=== PATIENT | male | born 1985 | race Caucasian/White ===

== ENCOUNTER → 2020-03-28 | Outpatient (CLI) | payer OTHER ==
--- NOTE | 2020-03-28 19:14 | REPVR ---
PROCEDURE INFORMATION: Exam: CT Maxillofacial Without Contrast, Sinus Exam date and time: 03/28/2020 6:18 PM Age: 34 years old Clinical indication: Sinusitis; Chronic; Additional info: Chronic maradiaga sinusitis TECHNIQUE: Imaging protocol: CT Maxillofacial without contrast. Focus on the sinuses. Radiation optimization: All CT scans at this facility use at least one of these dose optimization techniques: automated exposure control; mA and/or kV adjustment per patient size (includes targeted exams where dose is matched to clinical indication); or iterative reconstruction. COMPARISON: No relevant prior studies available. FINDINGS: Frontal sinuses: Normal. No air-fluid levels. Ethmoid air cells: Normal. No air-fluid levels. Sphenoid sinuses: Normal. No air-fluid levels. Maxillary sinuses: There are mucous retention cysts or polyps in the maxillary sinuses, larger on the left. No air-fluid levels. No mucosal thickening. Nasal cavity/Septum: Ostiomeatal complexes appear patent. There is mild gradual nasal septal deviation to the right. Orbital cavity: Globes are unremarkable. No abnormality seen in the intraorbital contents. Bones/joints: Additional findings: Coronal reformatted images are available for review. There are no sagittal reformatted images. Nasal bones deviate slightly to the left which may be from remote nasal bone fractures. No acute nasal bone fracture. No acute fracture of the included osseous structures. Soft tissues: Unremarkable. IMPRESSION: 1. Mucous retention cysts or polyps in the maxillary sinuses, larger on the left. No air-fluid levels or mucosal thickening in the paranasal sinuses. 2. Questionable remote nasal bone fractures. Electronically signed by: Roseanne Nguyễn On 03/28/2020 19:14:35 PM
== END ==
LOC: M RAD 18:04
PROVIDERS: ATTEND Otolaryngology
DX: J32.4 Chronic pansinusitis (principal)

== ENCOUNTER 2020-05-29 07:17 | Day surgery (SDC) | payer OTHER ==
[~2020-05-29] VITALS: Ht 190.5 cm; Wt 88.8 kg
[2020-05-29] MEDS ORDERED: LIDOCAINE W/EPINEPHRINE 1% 20ML VIAL As Ordered ONE (08:32)
[2020-05-29] MEDS ORDERED: EPINEPHrine 1MG/ML INJ 30ML MD-VIAL As Ordered ONE (08:32)
[2020-05-29] MEDS ORDERED: METHYLENE BLUE 0.5% (5MG/ML) 10 ML AMP (PROVAYBLUE) As Ordered ONE (08:32)
[2020-05-29] MEDS ORDERED: propofoL 200 MG/20 ML VIAL As Ordered ONE (08:34)
[2020-05-29] MEDS ORDERED: dexameTHASONE 4 MG/ML 1ML VIAL (J1100 PER 1MG) As Ordered ONE (08:34)
[2020-05-29] MEDS ORDERED: ROCURONIUM BROMIDE 50 MG/5 ML VIAL As Ordered ONE (08:34)
[2020-05-29] MEDS ORDERED: LIDOCAINE 2% 100MG/5ML SDV (FOR ANES.) As Ordered ONE (08:34)
[2020-05-29] MEDS ORDERED: MIDAZOLAM INJ 2MG/2ML VIAL (J2250 PER 1MG) As Ordered ONE (08:35)
[2020-05-29] MEDS ORDERED: fentaNYL 250 MCG/5 ML INJECTION (J3010) As Ordered ONE (08:35)
[2020-05-29] MEDS ORDERED: ONDANSETRON 4MG/2ML VIAL As Ordered ONE (08:42)
[2020-05-29] MEDS ORDERED: LACRILUBE (AKWA TEARS) OPHTH OINT 3.5 GM As Ordered ONE (08:44)
[2020-05-29] MEDS ORDERED: SUGAMMADEX SODIUM 500 MG/5 ML VIAL (BRIDION) As Ordered ONE (09:16)
[2020-05-29] MEDS ORDERED: ACETAMINOPHEN 1000MG 100ML IV BTL (OFIRMEV) (J0131 PER 10MG) As Ordered ONE (09:16)
[2020-05-29] MEDS ORDERED: ONDANSETRON 4MG/2ML VIAL IV PRN (10:20)
[2020-05-29] MEDS ORDERED: ACETAMINOPH W/CODEINE #3 TAB UD PO PRN (10:20)
[2020-05-29] MEDS ORDERED: fentaNYL 100 MCG/2 ML INJECTION (J3010) IV PRN (10:20)
[2020-05-29] MEDS ORDERED: PERCOCET 5MG/325MG TAB PO PRN (10:20)
[2020-05-29] MEDS ORDERED: LR 1,000 ML IV SCH ×2 (10:20)
[2020-05-29 10:35] VITALS: BP 139/93
--- NOTE | 2020-05-29 14:29 | RO ---
OPERATIVE NOTE DATE OF OPERATION: 05/29/2020 PREOPERATIVE DIAGNOSES: 1. Nasal septal deviation 2. Chronic rhinitis. POSTOPERATIVE DIAGNOSES: 1. Nasal septal deviation. 2. Chronic rhinitis. OPERATIVE PROCEDURES: 1. Septoplasty. 2. Bilateral turbinectomy. SURGEON: José Miguel Menezes M.D. DESCRIPTION OF PROCEDURE: Under general anesthesia with the patient intubated, the patient was prepped in the usual manner. I used pledgets of of adrenaline 1:100,000 and infiltrated with lidocaine and epinephrine. I made an incision on the left side. I elevated the subperichondrial and periosteal dissection. I then the quadrangular cartilage from the maxillary crest and ethmoid plate. I mobilized the maxillary crest on both sides and there were spurs. I removed the spurs with the chisel and mallet. I then removed a portion of the ethmoid plate, which was deviated. Once this was done, the septum was draped. I did fracture the anterior nasal spine and moved it medially. Then, I closed that the incisions with 4-0 chromic and 4-0 Vicryl. I made an incision anterior to the inferior turbinate at both sides. I elevated the mucosa and removed a portion of the tanner anteriorly. I closed that incision with 4-0 Vicryl. The patient tolerated the procedure well. Estimated blood loss was 20 mL. The patient was extubated and transferred to the recovery room in excellent condition.
== END 2020-05-29 11:35 | disposition home or self-care (01) ==
LOC: M SDC 07:17
PROVIDERS: ATTEND Otolaryngology
DX: J34.2 Deviated nasal septum (principal); J31.0 Chronic rhinitis
CPT/HCPCS: 30140; 30520; 88300; 88305; J0131; J1100; J2250; J2405; J3010; Q9968